=== PATIENT | female | born 1985 | race Caucasian/White ===

== ENCOUNTER 2018-01-20 22:10 | Emergency (ER) | payer MEDICAID ==
[2018-01-20] MEDS ORDERED: methylPREDNISolone SOD SUCC 125 MG/2 ML VL ONE (22:16)
[2018-01-20] MEDS ORDERED: IPRATROPIUM BROM 0.5 MG/2.5ML INH SOL NEB ONE (22:30)
[2018-01-20] MEDS ORDERED: methylPREDNISolone SOD SUCC 125 MG/2 ML VL IV ONE (22:30)
[2018-01-20] MEDS ORDERED: ALBUTEROL SULF 2.5 MG/0.5ML(0.5%) NEB SOLN NEB ONE ×2 (22:30→23:15)
[2018-01-20 23:15] LABS: Basophils # (auto) 0.1 uL; Eosinophils # (auto) 0.8 uL; Nucleated Red Blood Cells % 0.1 %; Red Cell Distribution Width 16.3 % (11.8-14.3); White Blood Cell 9.7 10^3/uL (4.4-10.8)
[2018-01-20] MEDS ORDERED: EPINEPHrine HCL 1 MG/1 ML AMP SC ONE (23:15)
[2018-01-20 23:18] LABS: Basophils % (auto) 0.7 % (0.0-2.0); Eosinophils % (auto) 8.4 % (0.0-7.0); Hematocrit 36.6 % (36.0-46.0); Hemoglobin 11.7 g/dL (12.2-16.2); Lymphocytes # (auto) 3.3 uL; Lymphocytes % (auto) 34.1 % (10.0-50.0); Mean Corpuscular Hemoglobin 23.9 pg (28.0-32.0); Mean Corpuscular Hgb Conc. 31.9 g/dL (32.0-36.0); Mean Corpuscular Volume 75.1 fL (80.0-100.0); Monocytes # (auto) 0.6 uL; Monocytes % (auto) 6.3 % (0.0-12.0); Neutrophils # (auto) 4.9 uL; Neutrophils % (auto) 50.5 % (37.0-80.0); Platelet Count (auto) 306 10^3/uL (140-450); Red Blood Cells 4.88 10^6/uL (4.0-5.20)
[2018-01-20 23:45] LABS: Alanine Aminotransferase 25 U/L (13-56); Albumin 3.4 g/dL (3.4-5.0); Anion Gap 12 (5-15); Aspartate Aminotransferase 15 U/L (15-37); BUN/Creatinine Ratio 15.5; Blood Urea Nitrogen 15 mg/dL (7-18); Calcium 8.5 mg/dL (8.5-10.1); Carbon Dioxide 22 mmol/L (21-32); Chloride 102 mmol/L (98-107); GFR African American 85 mL/min; GFR Non-African American 70 mL/min; Glucose 285 mg/dL (74-106); Magnesium 1.6 mg/dL (1.6-2.6); Potassium 4.1 mmol/L (3.5-5.1); Sodium 136 mmol/L (136-145)
[2018-01-20 23:54] LABS: Alkaline Phosphatase 75 U/L (45-117); Bilirubin, Total 0.1 mg/dL (0.2-1.0); Total Protein 7.5 g/dL (6.4-8.2)
[2018-01-21 02:00] VITALS: BP 120/93
[2018-01-21] MEDS ORDERED: SODIUM CHLORIDE 0.9% 1,000 ML IV ONE (02:00)
== END 2018-01-21 02:40 | disposition home or self-care (01) ==
LOC: ER 22:10
DX: J45.901 Unspecified asthma with (acute) exacerbation (principal); J06.9 Acute upper respiratory infection, unspecified; E11.9 Type 2 diabetes mellitus without complications
CPT/HCPCS: 36415; 71045; 80053; 83735; 84484; 85025; 93005; 94640; 94761; 96372; 96374; 99285; J0171; J2930; J7030; J7611

== ENCOUNTER 2018-01-24 14:31 | Inpatient (IN) | payer MEDICAID ==
[~2018-01-24] VITALS: Ht 165.1 cm; Wt 107.5 kg
[2018-01-24] MEDS ORDERED: ALBUTEROL SULF 2.5 MG/0.5ML(0.5%) NEB SOLN NEB ONE (14:45)
[2018-01-24] MEDS ORDERED: IPRATROPIUM BROM 0.5 MG/2.5ML INH SOL NEB ONE (14:45)
[2018-01-24] MEDS ORDERED: methylPREDNISolone SOD SUCC 125 MG/2 ML VL IV ONE ×2 (14:45)
[2018-01-24] MEDS ORDERED: cefTRIAXone 1GM/50ML D5W 50 ML IV ONE (15:00)
[2018-01-24 16:08] LABS: Eosinophils # (auto) 0.7 uL; Monocytes # (auto) 0.6 uL
[2018-01-24 16:10] LABS: Basophils # (auto) 0 uL; Basophils % (auto) 0.4 % (0.0-2.0); Eosinophils % (auto) 6.9 % (0.0-7.0); Hematocrit 36.6 % (36.0-46.0); Hemoglobin 11.7 g/dL (12.2-16.2); Lymphocytes # (auto) 3.2 uL; Lymphocytes % (auto) 32.3 % (10.0-50.0); Mean Corpuscular Hgb Conc. 31.8 g/dL (32.0-36.0); Mean Corpuscular Volume 75.5 fL (80.0-100.0); Monocytes % (auto) 6.5 % (0.0-12.0); Neutrophils # (auto) 5.3 uL; Neutrophils % (auto) 53.9 % (37.0-80.0); Platelet Count (auto) 317 10^3/uL (140-450); Red Blood Cells 4.85 10^6/uL (4.0-5.20); Red Cell Distribution Width 16.6 % (11.8-14.3); White Blood Cell 9.8 10^3/uL (4.4-10.8)
[2018-01-24 16:18] LABS: Albumin 3.4 g/dL (3.4-5.0); Calcium 9.2 mg/dL (8.5-10.1); Magnesium 1.9 mg/dL (1.6-2.6); Potassium 4.3 mmol/L (3.5-5.1)
[2018-01-24 16:21] LABS: Bilirubin, Total 0.2 mg/dL (0.2-1.0); Total Protein 7.5 g/dL (6.4-8.2)
[2018-01-24] MEDS ORDERED: PANTOPRAZOLE 40 MG/10 ML VIAL IV ONE (16:30)
[2018-01-24 16:59] LABS: Urine Bacteria FEW /hpf (None Seen); Urine Blood 1+ /uL (Negative); Urine Specific Gravity 1.013 (1.001-1.035); Urine WBC 20 /hpf (0 - 5)
[2018-01-24] MEDS ORDERED: ACETAMINOPHEN 500 MG TAB PO PRN (17:00)
[2018-01-24] MEDS ORDERED: NITROGLYCERIN 0.4 MG SL TAB SL PRN (17:00)
[2018-01-24] MEDS ORDERED: KETOROLAC TROMETH 30 MG/ML 1ML VIAL IV PRN (17:00)
[2018-01-24] MEDS ORDERED: TEMAZEPAM 15 MG CAP PO PRN (17:00)
[2018-01-24] MEDS ORDERED: PROMETHAZINE HCL 25 MG/ML 1ML IV PRN (17:00)
[2018-01-24] MEDS ORDERED: MORPHINE SULFATE 4 MG/ML SYR/VIAL IV PRN (17:00)
[2018-01-24] MEDS ORDERED: LACTULOSE 20Gm/30ML SOLN PO PRN (17:00)
[2018-01-24] MEDS ORDERED: traMADol HCL 50 MG TAB PO PRN (17:00)
[2018-01-24] MEDS ORDERED: LORazepam 0.5 MG TAB PO PRN (17:00)
[2018-01-24] MEDS ORDERED: DEXTROSE (50%) 50ML SYRG IV PRN (17:00)
[2018-01-24] MEDS ORDERED: ALBUTEROL SULF 2.5 MG/0.5ML(0.5%) NEB SOLN NEB PRN (17:00)
[2018-01-24] MEDS ORDERED: ENALAPRILAT 1.25 MG/ML-1ML VIAL IV PRN (17:30)
[2018-01-24] MEDS ORDERED: ENALAPRIL MALEATE 2.5 MG TAB PO ONE (17:30)
[2018-01-24] MEDS: ACCU-CHEK COMFORT CURVE STRIP VI SCH ×2 (17:42→22:00)
[2018-01-24] MEDS: SODIUM CHLORIDE 0.9% 1,000 ML IV SCH (17:55)
[2018-01-24] MEDS: DOXYCYCLINE 100MG/250ML 250 ML IV SCH (17:55)
[2018-01-24] MEDS: InsuLIN REG 1unit/0.01ml Soln (100units/ml) SC SCH ×2 (17:55→22:52)
[2018-01-24 20:00] VITALS: BP 136/92
[2018-01-24] MEDS: IPRATROPIUM BROM 0.5 MG/2.5ML INH SOL NEB SCH (20:09)
[2018-01-24] MEDS: ALBUTEROL SULF 2.5 MG/0.5ML(0.5%) NEB SOLN NEB SCH (20:09)
[2018-01-24 21:10] VITALS: BP 136/94
[2018-01-24 21:58] VITALS: BP 136/92
[2018-01-24] MEDS: methylPREDNISolone SOD SUCC 40 MG/ML VL IV SCH (22:52)
[2018-01-25] MEDS ORDERED: methylPREDNISolone SOD SUCC 40 MG/ML VL IV SCH
[2018-01-25] MEDS: IPRATROPIUM BROM 0.5 MG/2.5ML INH SOL NEB SCH ×4 (00:20→18:34)
[2018-01-25] MEDS: ALBUTEROL SULF 2.5 MG/0.5ML(0.5%) NEB SOLN NEB SCH ×4 (00:20→18:34)
[2018-01-25] MEDS ORDERED: FENO160T8 PO (01:35)
[2018-01-25] MEDS ORDERED: GABA-339 PO (01:35)
[2018-01-25] MEDS ORDERED: OMEP20TA PO (01:35)
[2018-01-25] MEDS ORDERED: INSLANTI SC (01:35)
[2018-01-25] MEDS ORDERED: LISI-275 PO (01:35)
[2018-01-25] MEDS ORDERED: INSLISPI SC (01:35)
[2018-01-25] MEDS ORDERED: MELO1TAB56 PO (01:35)
[2018-01-25] MEDS ORDERED: METF-370 PO (01:35)
[2018-01-25] MEDS ORDERED: MORP15TA PO (01:35)
[2018-01-25] MEDS ORDERED: GLYB5TAB8 PO (01:35)
[2018-01-25] MEDS ORDERED: PERCOT PO (01:35)
[2018-01-25 05:00] VITALS: BP 115/59
[2018-01-25] MEDS: DOXYCYCLINE 100MG/250ML 250 ML IV SCH ×2 (05:45→17:46)
[2018-01-25] MEDS: SODIUM CHLORIDE 0.9% 1,000 ML IV SCH (06:18)
[2018-01-25] MEDS: ACCU-CHEK COMFORT CURVE STRIP VI SCH ×4 (06:21→22:26)
[2018-01-25] MEDS: InsuLIN REG 1unit/0.01ml Soln (100units/ml) SC SCH ×4 (06:53→22:27)
[2018-01-25 08:18] VITALS: BP 128/82
[2018-01-25 08:30] VITALS: BP 128/82
[2018-01-25] MEDS: ENALAPRIL MALEATE 2.5 MG TAB PO SCH (09:06)
[2018-01-25] MEDS: PANTOPRAZOLE 40 MG TAB PO SCH (09:06)
[2018-01-25] MEDS: ENOXAPARIN SOD 40 MG/0.4 ML SYRINGE SC SCH (09:07)
[2018-01-25] MEDS: methylPREDNISolone SOD SUCC 40 MG/ML VL IV SCH ×3 (09:07→23:47)
[2018-01-25 16:42] VITALS: BP 131/90
[2018-01-25] MEDS ORDERED: MORPHINE SULFATE 15 MG PO PRN (19:00)
[2018-01-25] MEDS ORDERED: OXYCODONE W/ ACETAMINOPHEN 5/325MG TABLET PO PRN (19:00)
[2018-01-25] MEDS ORDERED: DEXTROSE (50%) 50ML SYRG IV PRN (19:45)
[2018-01-25 20:00] VITALS: BP 109/66
[2018-01-25] MEDS: GABAPENTIN 300 MG CAP PO SCH (21:33)
[2018-01-25] MEDS: glyBURIDE 5 MG TAB PO SCH (21:33)
[2018-01-25] MEDS ORDERED: MONTELUKAST SODIUM 10 MG TAB PO SCH (22:00)
[2018-01-25] MEDS ORDERED: INSULIN LANTUS (GLARGINE) 1 /0.01ml (100units/ml) SC SCH (22:00)
[2018-01-25] MEDS ORDERED: InsuLIN REG 1unit/0.01ml Soln (100units/ml) SC SCH (22:00)
[2018-01-26] MEDS: ALBUTEROL SULF 2.5 MG/0.5ML(0.5%) NEB SOLN NEB SCH ×3 (00:30→10:20)
[2018-01-26] MEDS: BUDESONIDE (INHALATION) 0.5 MG/2 ML NEB NEB SCH ×2 (00:30→10:20)
[2018-01-26 05:53] VITALS: BP 136/74
[2018-01-26] MEDS: glyBURIDE 5 MG TAB PO SCH (06:10)
[2018-01-26] MEDS: methylPREDNISolone SOD SUCC 40 MG/ML VL IV SCH ×2 (06:10→12:00)
[2018-01-26] MEDS: GABAPENTIN 300 MG CAP PO SCH ×2 (06:10→14:00)
[2018-01-26] MEDS: ACCU-CHEK COMFORT CURVE STRIP VI SCH ×2 (06:30→11:52)
[2018-01-26] MEDS: InsuLIN REG 1unit/0.01ml Soln (100units/ml) SC SCH (06:38)
[2018-01-26] MEDS ORDERED: InsuLIN REG 1unit/0.01ml Soln (100units/ml) SC SCH ×3 (07:00→22:00)
[2018-01-26 08:00] VITALS: BP 117/76
[2018-01-26 08:47] VITALS: BP 117/76
[2018-01-26] MEDS: ENALAPRIL MALEATE 2.5 MG TAB PO SCH ×2 (09:24→09:28)
[2018-01-26] MEDS: PANTOPRAZOLE 40 MG TAB PO SCH (09:25)
[2018-01-26] MEDS: ENOXAPARIN SOD 40 MG/0.4 ML SYRINGE SC SCH (09:26)
[2018-01-26] MEDS ORDERED: LISINOPRIL 5 MG TAB PO SCH (10:00)
[2018-01-26] MEDS ORDERED: FENOFIBRATE 134 MG PO SCH (10:00)
[2018-01-26] MEDS ORDERED: MELOXICAM 15 MG PO SCH (10:00)
[2018-01-26 11:56] VITALS: BP 135/81
[2018-01-26] MEDS ORDERED: DEXTROSE (50%) 50ML SYRG IV PRN (12:00)
[2018-01-26 13:48] VITALS: BP 135/81
[2018-01-26] MEDS ORDERED: ACCU-CHEK COMFORT CURVE STRIP VI SCH (17:00)
== END 2018-01-26 15:37 | disposition home or self-care (01) | DRG 141 ==
LOC: ER 14:31 → TELE-WESTW 16:48 → TELE 16:48 → TELE-WESTW 18:38
PROVIDERS: ADMIT Internal Medicine; ATTEND Internal Medicine Pulmonary Disease
DX: J45.901 Unspecified asthma with (acute) exacerbation (principal); E11.65 Type 2 diabetes mellitus with hyperglycemia; E66.01 Morbid (severe) obesity due to excess calories; E11.9 Type 2 diabetes mellitus without complications; I16.0 Hypertensive urgency; D64.9 Anemia, unspecified; G89.29 Other chronic pain; M54.5 Low back pain; J06.9 Acute upper respiratory infection, unspecified; J20.9 Acute bronchitis, unspecified; Z98.51 Tubal ligation status; Z68.39 Body mass index [BMI] 39.0-39.9, adult; Z87.828 Personal history of other (healed) physical injury and trauma; Z87.81 Personal history of (healed) traumatic fracture
CPT/HCPCS: 36415; 71045; 80053; 81001; 81025; 82962; 83036; 83605; 83735; 85025; 87040; 87804; 94640; 94761; 96365; 96375; A6257; G0378; J0696; J1815; J3490